=== PATIENT | male | born 1965 | race Caucasian/White ===

== ENCOUNTER 2023-01-20 18:32 | Emergency (ER) | payer SELFPAY ==
[~2023-01-20] VITALS: Ht 185.4 cm; Wt 90.7 kg
[2023-01-20 19:55] LABS: BASOPHILS ABSOLUTE AUTO 0.06 K/mm3 (0.00-0.23); BASOPHILS PERCENT AUTO 1 % (0-2); EOSINOPHILS ABSOLUTE AUTO 0.13 K/mm3 (0.00-0.68); EOSINOPHILS PERCENT AUTO 1 % (0-6); Hematocrit 41.6 % (37.0-53.0); Hemoglobin 14.4 g/dL (13.5-17.5); IMMATURE GRAN ABSOLUTE AUTO 0.04 K/mm3 (0.00-0.10); IMMATURE GRAN PERCENT AUTO 0 % (0-1); LYMPHOCYTES ABSOLUTE AUTO 2.77 K/mm3 (0.84-5.20); LYMPHOCYTES PERCENT AUTO 29 % (21-46); MONOCYTES ABSOLUTE AUTO 1.11 K/mm3 (0.16-1.47); MONOCYTES PERCENT AUTO 12 % (4-13); Mean Corpuscular HGB 30.7 pg (26.0-34.0); Mean Corpuscular HGB Conc 34.6 g/dL (31.5-36.5); Mean Corpuscular Volume 89 fL (80-100); Mean Platelet Volume 10.1 fL (9.1-12.4); NEUTROPHILS ABSOLUTE AUTO 5.53 K/mm3 (1.96-9.15); NEUTROPHILS PERCENT AUTO 58 % (41-73); Platelet Count 346 K/mm3 (150-400); RDW Coefficient Variation 13.1 % (11.7-14.2); RDW Standard Deviation 42.6 fL (35.1-46.3); Red Blood Cell Count 4.69 M/mm3 (4.30-5.90); White Blood Cell Count 9.64 K/mm3 (4.00-11.30)
[2023-01-20 20:08] LABS: Albumin, Blood 3.4 g/dL (3.4-5.0); Bilirubin, Total 0.3 mg/dL (0.1-1.0); Bun/Creatinine Ratio 13.3 (12.0-20.0); Calcium, Blood 8.8 mg/dL (8.5-10.1); Creatinine, Blood 1.65 mg/dL (0.60-1.20); Globulin, Blood 3.5 g/dL (2.2-4.0); Potassium, Blood 4.1 mmol/L (3.5-5.5); Total Protein, Blood 6.9 g/dL (6.4-8.2)
[2023-01-21] MEDS ORDERED: FAMO20 PO (00:39)
[2023-01-21] MEDS ORDERED: ALMACONE SUSPE355 ML PO (00:39)
[2023-01-21 00:54] VITALS: BP 123/86
[2023-01-22] MEDS ORDERED: Prednisone10 MG PO (11:34)
== END 2023-01-21 00:54 | disposition home or self-care (01) ==
LOC: ER 18:32
PROVIDERS: Emergency Medicine
DX: R07.89 Other chest pain (principal); M79.602 Pain in left arm; F17.200 Nicotine dependence, unspecified, uncomplicated
CPT/HCPCS: 71046; 71260; 80053; 83690; 84484; 85025; 85379; 93005; 93010; 96374; 99285-25; J1885; Q9967

== ENCOUNTER 2023-01-22 08:24 | Emergency (ER) | payer OTHER ==
[~2023-01-22] VITALS: Ht 185.4 cm; Wt 99.8 kg
[~2023-01-22 08:24] MED LIST: ALMACONE SUSPE355 ML PO; FAMO20 PO
[2023-01-22 10:10] LABS: BASOPHILS ABSOLUTE AUTO 0.06 K/mm3 (0.00-0.23); BASOPHILS PERCENT AUTO 1 % (0-2); EOSINOPHILS ABSOLUTE AUTO 0.24 K/mm3 (0.00-0.68); EOSINOPHILS PERCENT AUTO 3 % (0-6); Hemoglobin 14.4 g/dL (13.5-17.5); IMMATURE GRAN ABSOLUTE AUTO 0.02 K/mm3 (0.00-0.10); IMMATURE GRAN PERCENT AUTO 0 % (0-1); LYMPHOCYTES ABSOLUTE AUTO 1.92 K/mm3 (0.84-5.20); LYMPHOCYTES PERCENT AUTO 27 % (21-46); MONOCYTES ABSOLUTE AUTO 0.57 K/mm3 (0.16-1.47); MONOCYTES PERCENT AUTO 8 % (4-13); Mean Corpuscular HGB 30.8 pg (26.0-34.0); Mean Corpuscular HGB Conc 33.5 g/dL (31.5-36.5); Mean Corpuscular Volume 92 fL (80-100); Mean Platelet Volume 9.6 fL (9.1-12.4); NEUTROPHILS ABSOLUTE AUTO 4.25 K/mm3 (1.96-9.15); NEUTROPHILS PERCENT AUTO 60 % (41-73); Platelet Count 358 K/mm3 (150-400); RDW Coefficient Variation 13.1 % (11.7-14.2); RDW Standard Deviation 44.8 fL (35.1-46.3); Red Blood Cell Count 4.68 M/mm3 (4.30-5.90); White Blood Cell Count 7.06 K/mm3 (4.00-11.30)
[2023-01-22 10:30] VITALS: BP 142/72
[2023-01-22 10:30] LABS: BODY FLUID RBC 0.002 M/mm3 (0-0)
[2023-01-22 10:32] LABS: Albumin, Blood 2.9 g/dL (3.4-5.0); Albumin/Globulin Ratio 0.8 (0.8-1.8); Bilirubin, Total 0.2 mg/dL (0.1-1.0); Bun/Creatinine Ratio 17.3 (12.0-20.0); Calcium, Blood 8.9 mg/dL (8.5-10.1); Creatinine, Blood 1.27 mg/dL (0.60-1.20); Globulin, Blood 3.7 g/dL (2.2-4.0); Potassium, Blood 4.9 mmol/L (3.5-5.5); Total Protein, Blood 6.6 g/dL (6.4-8.2)
[2023-01-22 10:34] LABS: Body Fluid Crystals POS (NEGATIVE)
[2023-01-22 10:38] LABS: RBC Count, Synovial Fluid 2000 /mm3 (0-0); WBC Count, Synovial Fluid 4514 /mm3 (0-180)
[2023-01-22] MEDS ORDERED: Prednisone10 MG PO (11:34)
[2023-01-22 11:46] LABS: Color, Synovial Fluid Yellow (None-P Yel); Lymphs, Synovial Fluid 10 % (0-15); Monocytes/Macrophages, Synovia 8 % (0-65); Neutrophils, Synovial Fluid 82 % (0-24)
[2023-01-22 11:47] LABS: Appearance, Synovial Fluid Hazy (Clear)
== END 2023-01-22 11:45 | disposition home or self-care (01) ==
LOC: ER 08:24
PROVIDERS: Student in an Organized Health Care Education/Training Program
DX: M25.462 Effusion, left knee (principal); M10.9 Gout, unspecified; F17.200 Nicotine dependence, unspecified, uncomplicated
CPT/HCPCS: 20610; 80053; 85025; 87070; 87075; 87077; 87186; 87205; 89051; 89060; 96372-59; 99283-25; A9270; J1885; J7512